=== PATIENT | male | born 1950 | race Caucasian/White ===

== ENCOUNTER 2024-03-16 18:32 | Emergency (ER) | payer MEDICARE ==
[2024-03-16] MEDS: Amoxicillin/Clavulanate K 875-125 MG Tab PO ONE (19:49)
== END 2024-03-16 19:53 | disposition home or self-care (01) ==
LOC: MW.ED 18:32
DX: K00.7 Teething syndrome (principal); K08.89 Other specified disorders of teeth and supporting structures; I10 Essential (primary) hypertension; F17.210 Nicotine dependence, cigarettes, uncomplicated; Z02.89 Encounter for other administrative examinations; Z79.899 Other long term (current) drug therapy
CPT/HCPCS: 93005; 99283; A9270